=== PATIENT | male | born 1975 | race Caucasian/White ===

== ENCOUNTER → 2023-10-21 09:50 | Outpatient (REF) | payer BC, SELFPAY | LOC: RCS 09:50 | PROVIDERS: ATTENDING PHYSICIAN Internal Medicine Cardiovascular Disease | DX: R94.31 Abnormal electrocardiogram [ECG] [EKG] (principal) | CPT/HCPCS: 93306 ==

== ENCOUNTER → 2024-01-24 07:47 | Outpatient (REF) | payer BC, SELFPAY | LOC: RAD 07:47 | PROVIDERS: ATTENDING PHYSICIAN Surgery; FAMILY PHYSICIAN Family Medicine | DX: N40.1 Benign prostatic hyperplasia with lower urinary tract symptoms (principal) | CPT/HCPCS: 76770 ==

== ENCOUNTER 2024-08-04 18:04 | Inpatient (IN) | payer BC, SELFPAY ==
[2024-08-04 11:31] VITALS: BP 162/101
--- NOTE | 2024-08-04 14:17 | ED.GENMED ---
History of Present Illness
General
Chief Complaint: Abdominal Pain
Time Seen by Provider: 08/04/24 13:55
History of Present Illness
History of Present Illness:
49-year-old male presents the emergency department for evaluation of lower abdominal discomfort. Symptoms been waxing waning for the past several days but today he woke with severe symptoms making it challenging to even stand. He went to urgent
care where labs revealed mild leukocytosis as well as an elevated serum creatinine. He does report he has been taking 5 g of creatine essentially since April. Shows me outpatient lab results from April with a creatinine of 0.88. Has had
diverticulitis in the past and states the pain feels similar. No fevers or chills
Past History
Past History
ED Past Medical History: Asthma and Other (Diverticulitis)
Social History
Tobacco: Non-smoker
Alcohol: Occasional
Drug: None
Living: with family
Employment: Employed
Family History
Family History: CAD and Other
Review of Systems
Review of Systems
Allergies reviewed?: Yes
All Other Systems: ROS reviewed and negative except as documented in HPI and ROS
Phy Exam
Physical Exam
Physical Exam:
GEN: Well appearing, NAD, WDWN
HEENT: Oral mucosa moist, no scleral icterus
Cardiac: Regular rate
Lung: No respiratory distress, no tachypnea
Abdomen: Soft, suprapubic tenderness moderate
MSK: No gross deformity or injuries
Skin: Good color, no pallor or jaundice, no rashes
Neuro: AO x3, moves all extremities freely
Psych: Calm, cooperative
Course
Orders/Labs/Results
Orders:
Orders
08/04/24 14:12
CT Abd/Pel (IV only)-[facility] only Urgent
Comment:
Reason For Exam: lower abd pain
08/04/24 14:28
C-Reactive Protein Urgent
Comment: ADDON
CPK [Creatine Phosphokinase] Urgent
Complete Blood Count/No Diff Urgent
Comprehensive Metabolic Panel Urgent
08/04/24 14:29
0.9% Sodium Chloride 1000 ml [Nss] 1,000 ml IV BOLUS
08/04/24 16:44
LevoFLOXacin 750 MG/150 ML [Levaquin] 750 mg in 150 ml IV NOW
MetroNIDAZOLE 500 MG/100 ML [Flagyl 500 mg] 100 ml IV NOW
08/04/24 17:47
Admit/Transfer Patient As Directed
Co-Sign Provider:
Level of Care: Inpatient admission
Assign to:: Medical/Surgical
Physician / Group: [email or web address]
Diagnosis: Complicated acute severe sigmoid diverticulitis with audi diverticular ab
Reason for Hospitalization: Complicated acute severe sigmoid diverticulitis with audi diverticular abscess
Expected length of stay greater than two midnights?: Yes
ELOS- Estimated Length of Stay in days: 3
I certify the patient meets the requirements for IP care: Yes
08/04/24 17:51
Code Status As Directed
Resuscitation Status: Full Code
Abnormal Lab Results
08/04/24
14:28
WBC 15.3 H 10^3/uL
(4.8-10.8)
MCHC 32.9 L g/dL
(33.0-37.0)
Glucose 100 H mg/dl
(70-99)
Creatine Kinase 230 H U/L
(55-170)
C-Reactive Protein 24.50 H mg/L
(0.0-10.00)
08/04/24 14:28
08/04/24 14:28
Vital Signs
Initial and Last Documented VS:
Initial Vital Signs
Temp Pulse Resp BP Pulse Ox
98.1 F 99 20 162/101 99
08/04/24 11:31 08/04/24 11:31 08/04/24 11:31 08/04/24 11:31 08/04/24 11:31
Last Documented Vital Signs
Temp Pulse Resp BP Pulse Ox
98.1 F 88 16 142/101 98
08/04/24 18:32 08/04/24 17:10 08/04/24 17:10 08/04/24 17:10 08/04/24 17:10
MDM/Problems Addressed
MDM/Problems Addressed:
Elevated serum creatinine from urgent care likely artifactual in the setting of rapid i-STAT lab use. Creatinine in the ED is normal. CT shows severe diverticulitis with a peridiverticular abscess thus will admit for IV antibiotics
*Critical Care Note
Total Time (30-74mins, 75-104mins- exclusive of procedures): Not Applicable
ED Attending Note
-
Portions of this chart may have been created with voice recognition software.� Occasional wrong word or��sound alike� substitutions may have occurred due to the inherent limitations of voice recognition software.
Discharge Plan
Departure
Patient Disposition: Admit
Date of Disposition: 08/04/24
Time of Disposition: 16:45
Admit to: Med/Surg
Presentation/result/management discussed w/ accepting MD/DO: Hospitalist
Discharge Problem:
Diverticulitis of intestine with abscess
Interventions
Interventions:
*Risk Screen - Suicide Last Done: 08/04/24 14:22
*General Assessment Last Done: 08/04/24 11:31
*Neglect/Abuse Screening Last Done: 08/04/24 14:22
*ED- Fall Risk Assessment Last Done: 08/04/24 14:21
*ED COVID-19 Vaccine History Last Done: 08/04/24 14:21
OO-Vgdbgi-Dgfdfgkhlj Assessment Last Done: 08/04/24 14:22
[2024-08-04 14:21] VITALS: BMI 27.4
[2024-08-04] MEDS: NSS 1000 IV ×2 (14:31→20:53)
[2024-08-04 14:57] LABS: Hematocrit 43.4 % (39.0-52.0); Hemoglobin 14.3 g/dL (13.0-18.0); Mean Corp Hgb Conc. 32.9 g/dL (33.0-37.0); Mean Corpuscular Hgb 28.3 pg (27.0-31.0); Mean Corpuscular Volume 85.8 fL (80.0-94.0); Mean Platelet Volume 9.2 fL (7.4-10.4); Platelet Count 229 10^3/uL (130-400); Red Blood Cell Count 5.06 10^6/uL (4.70-6.10); White Blood Cell Count 15.3 10^3/uL (4.8-10.8)
[2024-08-04 15:10] LABS: ALT (SGPT) 48 U/L (0-50); AST (SGOT) 36 U/L (17-59); Albumin 4.5 g/dl (3.5-5.0); Alkaline Phosphatase 79 U/L (38-126); Blood Urea Nitrogen 16 mg/dl (9-20); Calcium 9.6 mg/dl (8.4-10.2); Carbon Dioxide 28 mmol/L (22-30); Chloride 99 mmol/L (98-107); Creatine Phosphokinase 230 U/L (55-170); Estimated Creatinine Clearance 108 ml/min; Glucose 100 mg/dl (70-99); Potassium 4.3 mmol/L (3.5-5.1); Sodium 136 mmol/L (135-145); Total Bilirubin 0.5 mg/dl (0.2-1.3); Total Protein 7.4 g/dl (6.3-8.2); eGFR > 60.00
[2024-08-04] MEDS: FLAGYL 500 MG 100 IV (17:01)
[2024-08-04 17:10] VITALS: BP 142/101
--- NOTE | 2024-08-04 17:41 | HPS.HSE ---
Family Physician
-
Family Physician: NOT KNOW UNKNOWN - PT DOES
Chief Complaint
-
acute lower abdominal discomfort
History of Present Illness
49M HX Diverticulitis, DMT2, HTN, HLD, HX PCN allergy seen at ER:
- pw acute lower abdominal discomfort.
- Symptoms been waxing waning for the past several days but today he woke with severe symptoms making it challenging to even stand.
- Evaluated at [facility] : labs revealed mild leukocytosis as well as an elevated serum creatinine. He has been taking 5 g of creatine essentially since April.
- HX diverticulitis in the past and states the pain feels similar.
ROS:
No fevers or chills
Medical History
Past Medical History
Past Medical History: Reports HTN, Hypercholesterolemia, NIDDM and Other (HX Diverticulitis)
Past Surgical History: Reports Other
Social History
Tobacco: Non-smoker
Alcohol: None
Family History
Family History: Not pertinent
Allergies / Home Medications
Allergies reflects when Allergies were last updated in [email or web address].
Home Medications with original date entered in [email or web address]
Allergy/Medication List:
Allergies
Allergy/AdvReac Type Severity Reaction Status Date / Time
Penicillins Allergy Unknown Unknown Verified 08/04/24 11:30
Home Medications
omeprazole 20 mg capsule,delayed release 20 mg PO DAILY 08/11/18
amlodipine 2.5 mg tablet 2.5 mg PO DAILY 08/04/24
atorvastatin 10 mg tablet 10 mg PO DAILY 08/04/24
fexofenadine 180 mg tablet 180 mg PO DAILY 08/04/24
metformin 500 mg tablet,extended release 24hr (osmotic) 1,000 mg PO BID 08/04/24
minocycline 50 mg capsule 50 mg PO DAILYPRN PRN flare up 08/04/24
therapeutic multivitamin 1 tab PO DAILY 08/04/24
vibegron 75 mg tablet (Gemtesa) 75 mg PO QPM 08/04/24
Review of Systems
-
Constitutional: Reports No Symptoms
EENT: Reports No Symptoms
Respiratory: Reports No Symptoms
Cardiac: Reports No Symptoms
Abdomen/GI: Reports See HPI and Abdominal Pain (lower abdominal discomfort )
: Reports No Symptoms
Musculoskeletal: Reports No Symptoms
Skin: Reports No Symptoms
Neurological: Reports No Symptoms
Endocrine: Reports No Symptoms
Hematologic/Lymphatic: Reports No Symptoms
Psych: Reports No Symptoms
Physical Exam
Vital Signs
Vital Signs
Temp Pulse Resp BP Pulse Ox
98.0 F 88 16 142/101 98
08/04/24 17:10 08/04/24 17:10 08/04/24 17:10 08/04/24 17:10 08/04/24 17:10
Physical Exam
General: Well Developed, Well Nourished and No Apparent Distress
HEENT: NormoCephalic, Moist mucous membranes and Atraumatic
Respiratory: Clear
Cardiac: S1/S2 and Regular Rhythm; No Murmur or Rub
GI: Soft and Tender (suprapubic tenderness )
Rectal: Deferred by Provider
Musculoskeletal: No Clubbing, No Cyanosis and No Edema
Skin: No Rash
Neuro: Nonfocal/grossly intact
Laboratory Results
-
08/04/24 14:28
08/04/24 14:28
Laboratory Results
Total Bilirubin 0.5 mg/dl (0.2-1.3) 08/04/24 14:28
AST 36 U/L (17-59) 08/04/24 14:28
ALT 48 U/L (0-50) 08/04/24 14:28
Alkaline Phosphatase 79 U/L (38-126) 08/04/24 14:28
Data Reviewed
-
CT Scan: Report Reviewed by me
Lab Data: Labs Reviewed by me
Impression/Plan
-
Laboratory Tests
08/04/24
14:28
WBC 15.3 H
Creatinine 0.9
eGFR > 60.00
Creatine Kinase [address] Abd/Pel (IV only)-DH only
- CT findings compatible with moderate to severe diverticulitis involving the sigmoid colon in the central and left pelvis.
- There is a small peridiverticular abscess between the sigmoid colon and the superior bladder wall, with slight thickening of the adjacent superior bladder wall.
- No air within the bladder at this time, with no convincing CT evidence for fistula at this time.
- There is no free intraperitoneal air.
- Hepatomegaly with diffuse fatty infiltration the liver. 1.5 cm hemangioma within the posterior and superior right lobe of the liver.
NO PRIOR hospitalist admission:
ASSESSMENT & PLAN
Complicated acute severe sigmoid diverticulitis with peridiverticular abscess but no free air
HX Diverticulitis
HX PCN allergy
- NPO and IVF
- Empiric IV Cefepime and Flagyl suggested by CRS for HX PCN allergy
- PRN narcotic algesia
- CRS consult
Borderline hypotension
HX benign HTN
- Hold amlodipine
DMT2
- Hold Metformin
- add ISS low
HLD
- hold atorvastatin
DVT Px: SQH
Full code
IP MS
[2024-08-04] MEDS: LEVAQUIN 150 IV (18:01)
[2024-08-04 19:52] VITALS: BP 135/83
[2024-08-04 20:07] VITALS: BMI 27.1
[2024-08-04 20:20] VITALS: BP 147/99
--- NOTE | 2024-08-04 20:30 | PTCARENOTE ---
Received patient from ED via stretcher. Patient ambulated from stretcher to bed independently. Oriented patient to room and placed call yang within reach.
[2024-08-04] MEDS: HEPARIN 5000 UNITS SC (20:54)
[2024-08-04] MEDS: MAXIPIME 2000 MG IV (21:01)
[2024-08-04] MEDS: STERILE WATER FOR INJECTION 10 ML IV (21:02)
[2024-08-04 23:47] VITALS: BP 140/83
[2024-08-05 00:21] LABS: Glucose - Point of Care 121 mg/dl (70-99)
[2024-08-05] MEDS: FLAGYL 500 MG 100 IV ×3 (00:34→16:49)
[2024-08-05 05:49] LABS: Glucose - Point of Care 108 mg/dl (70-99)
[2024-08-05 06:00] VITALS: BMI 26.8
[2024-08-05 06:25] LABS: Hematocrit 41.9 % (39.0-52.0); Hemoglobin 13.6 g/dL (13.0-18.0); INR 1.01; Mean Corp Hgb Conc. 32.5 g/dL (33.0-37.0); Mean Corpuscular Hgb 27.8 pg (27.0-31.0); Mean Corpuscular Volume 85.7 fL (80.0-94.0); Mean Platelet Volume 9.1 fL (7.4-10.4); PT 13.6 Sec (11.4-14.6); Platelet Count 211 10^3/uL (130-400); Red Blood Cell Count 4.89 10^6/uL (4.70-6.10); Red Cell Dist. Width 14.1 % (11.5-14.5); White Blood Cell Count 11.5 10^3/uL (4.8-10.8)
[2024-08-05] MEDS: STERILE WATER FOR INJECTION 10 ML IV ×3 (06:35→21:32)
[2024-08-05] MEDS: MAXIPIME 2000 MG IV ×3 (06:35→21:31)
[2024-08-05 06:42] LABS: Blood Urea Nitrogen 11 mg/dl (9-20); Calcium 9.2 mg/dl (8.4-10.2); Carbon Dioxide 32 mmol/L (22-30); Chloride 98 mmol/L (98-107); Estimated Creatinine Clearance 108 ml/min; Glucose 108 mg/dl (70-99); Potassium 4.2 mmol/L (3.5-5.1); Sodium 136 mmol/L (135-145); eGFR > 60.00
[2024-08-05 07:00] VITALS: BP 124/82
[2024-08-05] MEDS: NSS 1000 IV (07:57)
[2024-08-05] MEDS: HEPARIN 5000 UNITS SC ×2 (08:02→19:52)
[2024-08-05 08:20] LABS: Glycohemoglobin (HgbA1c) 6.6 % (4.0-5.6)
[2024-08-05 10:51] LABS: Urine Albumin Negative (Neg - Trace); Urine Bilirubin Negative (Negative); Urine Character Clear (Clear); Urine Color Yellow; Urine Glucose Negative (Negative); Urine Ketone Negative (Negative); Urine Leukocyte Negative (Negative); Urine Nitrite Negative (Negative); Urine Occult Blood Negative (Negative); Urine Urobilinogen Negative (Neg - 1+)
--- NOTE | 2024-08-05 12:00 | CM ---
CM following re: discharge planning.
Reviewed pt's chart,met with pt.
Pt is a 49 year old male, admitted with primary dx of Complicated acute severe sigmoid diverticulitis.
Pt reports he lives with spouse 2SH, 1 step to enter, has supportive son. pt described himself as independent in all areas [employer], drives, works.
PCP: pt stated his PCP left the practice and he is looking for a new PCP, declined to have a list of PCP offices.
Pharmacy: [facility]
D/C plan: home with no after care VN needs.
CM will follow with discharge plan updates as needed.
[2024-08-05 12:05] LABS: Glucose - Point of Care 131 mg/dl (70-99)
--- NOTE | 2024-08-05 14:44 | CON.CRS ---
Consultation
-
Date/Time Consultation Requested: 08/04/24 2017
Date/Time Consultation Performed: 08/05/24 1045
Requesting Provider: Ayala
Performing Provider: Christelle Joyner
Reason for Consultation: Complicated acute severe sigmoid diverticulitis with peridiverticular abs
Medical History
-
Chief Complaint: abdominal pain
History of Present Illness:
Mr Hameed is a 49 yo male with a history of DM, HTN, OAB, and diverticulitis about 10 years ago requiring hospitalization with last routine colonoscopy in March, who presented through the ED with LLQ abdominal pain across the suprapubic area
increasing over the past 4-5 days. He notes that initially he felt that he was constipated, but on Tuesday was able to have a BM without relief of symptoms. His pain increased causing him to present last night for evaluation. He has been passing
flatus, with last BM on Tuesday. He denies nausea, vomiting, fevers or chills. On exam, he is tender to the LLQ into the suprapubic area. He notes that his pain has improved since yesterday.
Past Medical History
Past Medical History: Diverticulitis, HTN, Hypercholesterolemia, NIDDM and Other (OAB)
Past Surgical History: None
Social History
Tobacco: Non-Smoker
Alcohol: Occasional
Family History
Family History: Reviewed & Not Pertinent
Allergies / Home Medications
Allergy/AdvReac Type Severity Reaction Status Date / Time
Penicillins Allergy Unknown as a child Verified 08/04/24 20:31
�Medication �Instructions �Recorded �Confirmed �Type
omeprazole 20 mg capsule,delayed 20 mg PO DAILY 08/11/18 08/04/24 History
release
amlodipine 2.5 mg tablet 2.5 mg PO DAILY 08/04/24 08/04/24 History
atorvastatin 10 mg tablet 10 mg PO DAILY 08/04/24 08/04/24 History
fexofenadine 180 mg tablet 180 mg PO DAILY 08/04/24 08/04/24 History
metformin 500 mg tablet,extended 1,000 mg PO BID 08/04/24 08/04/24 History
release 24hr (osmotic)
minocycline 50 mg capsule 50 mg PO DAILYPRN PRN flare up 08/04/24 08/04/24 History
therapeutic multivitamin 1 tab PO DAILY 08/04/24 08/04/24 History
vibegron 75 mg tablet (Gemtesa) 75 mg PO QPM 08/04/24 08/04/24 History
Review of Systems
-
History Source: Patient
All other systems: Negative unless noted
A 10 point review of systems was completed, and was negative except as per HPI.
Physical Exam
Vital Signs
Temp 97.7 F 08/05/24 07:00
Pulse 88 08/05/24 07:00
Resp Rate 17 08/05/24 07:00
Blood pressure 124/82 08/05/24 07:00
SaO2 93 08/05/24 07:00
08/04/24 08/05/24 08/06/24
06:59 06:59 06:59
Actual Weight 89.528 kg
Body Mass Index (BMI) 26.8
Lab Results / Allergies
08/05/24 05:32
08/05/24 05:32
WBC 11.5 10^3/uL (4.8-10.8) H 08/05/24 05:32
Hgb 13.6 g/dL (13.0-18.0) 08/05/24 05:32
Hct 41.9 % (39.0-52.0) 08/05/24 05:32
Plt Count 211 10^3/uL (130-400) 08/05/24 05:32
Allergy/AdvReac Type Severity Reaction Status Date / Time
Penicillins Allergy Unknown as a child Verified 08/04/24 20:31
Physical Exam
General: Well Developed and Well Nourished
HEENT: Moist Mucous Membranes
Respiratory: Non Labored Respirations
GI: Soft, Non Distended and Tender (LLQ into suprapubic area)
Skin: Warm and Dry
Neuro: Awake, Alert and AO x 3
Psych: Calm
Data Reviewed
-
CT Scan: Image Personally Visualized and interpreted, Report Reviewed by me, Discussed with Physician and Discussed with Patient
Labs: Labs Reviewed by me, Discussed with Physician and Discussed with Patient
Old Records: Reviewed
Assessment / Plan
-
49 yo male with a history of DM, HTN, OAB, and diverticulitis about 10 years ago requiring hospitalization with last routine colonoscopy in March, presenting with diverticulitis. CT imaging reviewed with sigmoid diverticulitis present with
adjacent thickening of the bladder wall. ?Abscess read on CT of 8mm. AFVSS. Leukocytosis present on admission and trending down. Pain thus far has improved with antibiotics and bowel rest.
No plans for emergent surgery at this time. Will follow with medical management for continued improvement
--Ok for clear liquids
--IVF as per primary team
--Continue IV ABX (cefepime/flagyl)
--Will follow labs/exams
--- NOTE | 2024-08-05 15:42 | W.PN.HOSP.TC ---
Today's Communication/Plan
-
stop IVF
cont clears
advance diet as per CRS
Assessment / Plan
Assessment / Plan
pt is a 49 year old male
Complicated acute severe sigmoid diverticulitis with possible peridiverticular abscess--apprec CRS--no surgery indicated--cont cefepime and flagyl--clears--advance diet as tolerated
Essential HTN--Hold amlodipine
DMT2--Hold Metformin-- add ISS low
HLD--hold atorvastatin
DVT proph
Code status--FULL CODE
Anticipated Discharge: 24 - 48 hours
Subjective/Interval History
-
Date of Service: August 05, 2024
pt without c/o
Objective Data
-
Labs:
Laboratory Results
08/05/24
05:32
WBC 11.5 H
Hgb 13.6
Hct 41.9
Plt Count 211
PT 13.6
INR 1.01
Sodium 136
Potassium 4.2
Chloride 98
Carbon Dioxide 32 H
BUN 11
Creatinine 0.9
Glucose 108 H
Calcium 9.2
Vital Signs:
max temp for 24 hours
08/04/24
20:20
Temp 98.3 F
Vital Signs
Temp Pulse Resp BP Pulse Ox
97.7 F 88 17 124/82 93
08/05/24 07:00 08/05/24 07:00 08/05/24 07:00 08/05/24 07:00 08/05/24 07:00
I&O
08/04/24 08/05/24 08/06/24
06:59 06:59 06:59
Intake Total 240 / 240
Balance 240 / 240
Review of Systems
-
All other systems: Reviewed and negative
Physical Exam
-
General: Well Developed, Well Nourished and No Apparent Distress
HEENT: Normocephalic and Atraumatic
Respiratory: Clear to Auscultation; Negative Wheezes or Rhonchi
Cardiac: Regular Rhythm and S1/S2; Negative Murmur
GI: Soft, Nontender, Nondistended and Normal Bowel Sounds
Musculoskeletal: No Clubbing, No Cyanosis and No Edema
Neuro: Awake
Psych: Calm
[2024-08-05 15:55] VITALS: BP 164/94
[2024-08-05 17:15] LABS: Glucose - Point of Care 112 mg/dl (70-99)
[2024-08-05 21:34] LABS: Glucose - Point of Care 110 mg/dl (70-99)
[2024-08-05 23:38] VITALS: BP 121/80
[2024-08-06] MEDS: FLAGYL 500 MG 100 IV ×2 (00:09→09:16)
[2024-08-06] MEDS: MAXIPIME 2000 MG IV ×2 (05:26→14:02)
[2024-08-06] MEDS: STERILE WATER FOR INJECTION 10 ML IV ×2 (05:26→14:02)
[2024-08-06 06:00] VITALS: BMI 26.8
[2024-08-06 07:25] VITALS: BP 139/89
[2024-08-06 07:28] LABS: Glucose - Point of Care 109 mg/dl (70-99)
[2024-08-06] MEDS: HEPARIN 5000 UNITS SC (09:16)
[2024-08-06 09:22] LABS: Hemoglobin 14.4 g/dL (13.0-18.0); Mean Corpuscular Hgb 27.9 pg (27.0-31.0); Mean Platelet Volume 9.1 fL (7.4-10.4); Platelet Count 242 10^3/uL (130-400); Red Blood Cell Count 5.17 10^6/uL (4.70-6.10); White Blood Cell Count 9.6 10^3/uL (4.8-10.8)
--- NOTE | 2024-08-06 09:48 | W.PN.CRS1 ---
Today's Communication / Plan
-
start regular diet
okay for d/c from our perspective if tolerating a diet
Assessment/Plan
-
49 yo male with a history of DM, HTN, OAB, and diverticulitis about 10 years ago requiring hospitalization with last routine colonoscopy in March, presenting with diverticulitis. CT imaging reviewed with sigmoid diverticulitis present with
adjacent thickening of the bladder wall. ?Abscess read on CT of 8mm. AFVSS. Leukocytosis present on admission and trending down. Pain thus far has improved with antibiotics and bowel rest.
Vitals normal
--Advance diet to regular
--IVF as per primary team
--Continue IV ABX (cefepime/flagyl) - finish course of oral antibiotics as an outpatient
--Will follow labs/exams
--If tolerating a diet, okay from our perspective for discharge. Finish outpatient course of antibiotics. Follow up with Dr. Joyner in 2-4 weeks.
Subjective Data
Subjective Data
Date of Service: August 06, 2024
Patient states his pain is 'not too bad'. He has some gas pains. He has flatus but no bowel movements. He denies nausea or vomiting.
Objective Data
-
Vital Signs
Temp Pulse Resp BP Pulse Ox
97.4 F 96 18 139/89 97
08/06/24 07:25 08/06/24 07:25 08/06/24 07:25 08/06/24 07:25 08/06/24 07:25
Intake & Output
08/05/24 08/06/24 08/07/24
06:59 06:59 06:59
Intake Total 240 / 240 3130 / 3130
Balance 240 / 240 3130 / 3130
Intake:
Oral fluids 240 / 240 2130 / 2130
IV fluids (Total) 200 / 200
IV piggybacks 800 / 800
Other:
Number of approximated MODERATE 2 2
amounts of urine
Lab Results
08/06/24 08:15
Physical Exam
-
General: No Acute Distress and AOx3
Abdomen: Soft, Non Distended and Tender (LLQ mild)
Skin: Warm and Dry
[2024-08-06 10:11] LABS: Blood Urea Nitrogen 12 mg/dl (9-20); Calcium 9.5 mg/dl (8.4-10.2); Carbon Dioxide 26 mmol/L (22-30); Chloride 100 mmol/L (98-107); Estimated Creatinine Clearance 121 ml/min; Glucose 109 mg/dl (70-99); Magnesium 2.6 mg/dl (1.6-2.3); Potassium 4.4 mmol/L (3.5-5.1); Sodium 136 mmol/L (135-145); eGFR > 60.00
--- NOTE | 2024-08-06 10:40 | W.PN.HOSP.TC ---
Addendum entered and electronically signed by Zarbina Waller MD 08/09/24 10:24:
Contained peridiverticular abscess not in peritoneum
- abx plan as below
Original Note:
Today's Communication/Plan
-
see plan
Assessment / Plan
Assessment / Plan
pt is a 49 year old male
CT A/P
IMPRESSION: CT findings compatible with moderate to severe diverticulitis involving the sigmoid colon in the central and left pelvis.
There is a small peridiverticular abscess between the sigmoid colon and the superior bladder wall, with slight thickening of the adjacent superior bladder wall. No air within the bladder at this time, with no convincing CT evidence for fistula at
this time.
There is no free intraperitoneal air.
Hepatomegaly with diffuse fatty infiltration the liver. 1.5 cm hemangioma within the posterior and superior right lobe of the liver.
Complicated acute severe sigmoid diverticulitis with possible peridiverticular abscess-
-Cefepime/Flagyl - will transition to Cipro/Flagyl on DC
-hx penicillin allergy
-appreciate CRS
-diet advanced, possible DC later today if tolerates
Essential HTN--Hold amlodipine
DMT2--Hold Metformin-- add ISS low
HLD--hold atorvastatin
DVT proph
Code status--FULL CODE
Anticipated Discharge: Within 24 hours
Subjective/Interval History
-
Date of Service: August 06, 2024
feeling well
going to order solid food for lunch
feels mildly bloated, passing gas
Objective Data
-
Labs:
Laboratory Results
08/06/24
08:15
WBC 9.6
Hgb 14.4
Hct 45.0
Plt Count 242
Sodium 136
Potassium 4.4
Chloride 100
Carbon Dioxide 26
BUN 12
Creatinine 0.8
Glucose 109 H
Calcium 9.5
Vital Signs:
Vital Signs
Temp Pulse Resp BP Pulse Ox
97.4 F 96 18 139/89 97
08/06/24 07:25 08/06/24 07:25 08/06/24 07:25 08/06/24 07:25 08/06/24 07:25
I&O
08/05/24 08/06/24 08/07/24
06:59 06:59 06:59
Intake Total 240 / 240 3130 / 3130
Balance 240 / 240 3130 / 3130
Review of Systems
-
History Source: Patient
All other systems: Reviewed and negative
Physical Exam
-
General: Well Developed, Well Nourished and No Apparent Distress
HEENT: Normocephalic and Atraumatic
Respiratory: Clear to Auscultation; Negative Wheezes or Rhonchi
Cardiac: Regular Rhythm and S1/S2; Negative Murmur
GI: Soft, Nontender, Nondistended and Normal Bowel Sounds
Musculoskeletal: No Clubbing, No Cyanosis and No Edema
Neuro: Awake
Psych: Calm
Data Reviewed
-
Diagnostic Radiology: Report Reviewed by me
Labs: Labs Reviewed by me
[2024-08-06 11:49] LABS: Glucose - Point of Care 151 mg/dl (70-99)
--- NOTE | 2024-08-06 14:07 | W.DS.TRANS ---
DC Summary - Adult Specialist
-
Discharge Instructions:
Discharge Diagnosis/Procedures acute diverticulitis
Diet Low Residue
Additional Diets Low Residue diet x 2-3 more days
Activity As tolerated
Driving Restrictions As prior to admission
Bathing Restrictions None
Instructions: Low-fiber diet
Stand-Alone Forms:
Changes to Home Medications: Yes
Discharge Medications:
DC Medications w/original date entered in [facility]
omeprazole 20 mg capsule,delayed release 20 mg PO DAILY 08/11/18
amlodipine 2.5 mg tablet 2.5 mg PO DAILY 08/04/24
atorvastatin 10 mg tablet 10 mg PO DAILY 08/04/24
fexofenadine 180 mg tablet 180 mg PO DAILY 08/04/24
metformin 500 mg tablet,extended release 24hr (osmotic) 1,000 mg PO BID 08/04/24
minocycline 50 mg capsule 50 mg PO DAILYPRN PRN flare up 08/04/24
therapeutic multivitamin 1 tab PO DAILY 08/04/24
vibegron 75 mg tablet (Gemtesa) 75 mg PO QPM 08/04/24
ciprofloxacin HCl 500 mg tablet 500 mg PO BID #22 tabs 08/06/24
metronidazole 500 mg tablet 500 mg PO Q8H 11 days #33 tabs 08/06/24
Home Medication Changes
Addition of Ciprofloxacin and Flagyl
Pending Results: No
--- NOTE | 2024-08-06 14:13 | W.DCSUMMARY ---
Discharge Summary
Discharge Data
Date of Admission: 08/04/24
Date of Discharge: 08/06/24
-
Pending Results: No
Hospital Course
Discharging Physician : Dr. Zabrina Waller
Disposition : Home
Primary care physician : Unknown - patient told to make an appointment this week
Principal Discharge diagnosis : Acute Complicated Diverticulitis
Hospital Course :
Mr. Enrique Hameed is a 49 yo man with hx essential HTN, DM, HLD presents to the ER with lower abdominal pain. Triage vitals significant for hypertension. Labs with WBC 15.3. CT with moderate to severe diverticulitis; small peridiverticular
abscess.
He was admitted to medicine with CRS consulting. He was given IV Cefepime/Flagyl. Symptoms improved over the next 48 hours, no indication for surgical intervention. He is tolerating a regular diet prior to discharge. He is discharged on
Ciprofloxacin/Flagyl to complete a 14 day course and will follow up with CRS as outpatient.
Time spent on discharge 31 minutes.
Important imaging findings :
Abdomen/Pelvis CT
IMPRESSION: CT findings compatible with moderate to severe diverticulitis involving the sigmoid colon in the central and left pelvis.
There is a small peridiverticular abscess between the sigmoid colon and the superior bladder wall, with slight thickening of the adjacent superior bladder wall. No air within the bladder at this time, with no convincing CT evidence for fistula at
this time.
There is no free intraperitoneal air.
Hepatomegaly with diffuse fatty infiltration the liver. 1.5 cm hemangioma within the posterior and superior right lobe of the liver.
Procedure findings :
Discharge Plan
-
Patient Disposition: Home (Routine Discharge)
Discharge Diagnosis/Procedures: acute diverticulitis
Diet: Low Residue
Additional Diets: Low Residue diet x 2-3 more days
Activity: As tolerated
Driving Restrictions: As prior to admission
Bathing Restrictions: None
Instructions: Low-fiber diet
Referrals:
Enrique Joyner MD [Active] - in two to four weeks
UNKNOWN - PT DOES,NOT KNOW [Family Provider] - in less than 1 week
Additional Discharge Medication Instructions: Continue antibiotic course x 11 more days to complete 14 days of therapy
Prescriptions:
New
ciprofloxacin HCl 500 mg tablet
500 mg PO BID Qty: 22 0RF
metronidazole 500 mg tablet
500 mg PO Q8H 11 Days Qty: 33 0RF
Continued
omeprazole 20 MG capsule,delayed release(DR/EC)
20 mg PO DAILY
atorvastatin 10 mg Tablet
10 mg PO DAILY
therapeutic multivitamin Tablet
1 tab PO DAILY
amlodipine 2.5 mg Tablet
2.5 mg PO DAILY
fexofenadine 180 mg Tablet
180 mg PO DAILY
minocycline 50 mg Capsule
50 mg PO DAILYPRN PRN (Reason: flare up)
metformin 500 mg Tablet Extended Release 24hr
1,000 mg PO BID
Gemtesa 75 mg Tablet
75 mg PO QPM
Discharge Orders:
Discharge Patient (As Directed); Ordered 08/06/24
Ordered By: Zabrina Waller
Discharge Date and Time
Print Language: GREEK
[2024-08-06 14:15] VITALS: BP 134/84
--- NOTE | 2024-08-06 14:31 | CM ---
Patient stable for d/c today.
No CM needs identified at this time
Plan: Home; no needs
--- NOTE | 2024-08-07 14:35 | PN.CDI ---
CDI
- -
CDI:
Physician Documentation Request
Admit Date: 08/04/24 18:04
Dear Doctor Sridhar,
Please review the following and provide your response in the progress notes.
Clinical Indicators:
- 08/06 DC Summary 'CT with moderate to severe diverticulitis; small peridiverticular abscess'
- 08/04 CT abd/pel 'small peridiverticular abscess which extends to the superior wall of the urinary bladder'
- 'There is no evidence of free intraperitoneal air'
- Discharged on Cipro and Flagyl
Please clarify the diagnosis with the above findings
Peritoneal abscess
Contained peridiverticular abscess not in peritoneum
Other (please specify)
Use of terms such as suspected, likely, concern for, or probable (associated with a specific diagnosis that is being evaluated, monitored, or treated as if it exists) are acceptable and can be coded in the inpatient setting, when documented at the
time of discharge.
Thank you,
Stacy Cano RN
CDI Specialist
Please use your independent medical judgment in providing your response.
== END 2024-08-06 14:36 | disposition home or self-care (01) | DRG 392 ==
LOC: 4 EAST ACU 18:04
PROVIDERS: Internal Medicine; Physician Assistant; Registered Nurse; ADMITTING PHYSICIAN Internal Medicine; ATTENDING PHYSICIAN Student in an Organized Health Care Education/Training Program; CONSULT PHYSICIAN Surgery; EMERGENCY PHYSICIAN Emergency Medicine
DX: K57.20 Diverticulitis of large intestine with perforation and abscess without bleeding (principal); I10 Essential (primary) hypertension; E78.00 Pure hypercholesterolemia, unspecified; E11.9 Type 2 diabetes mellitus without complications; D18.03 Hemangioma of intra-abdominal structures; J45.909 Unspecified asthma, uncomplicated; N32.81 Overactive bladder; Z88.0 Allergy status to penicillin; Z79.899 Other long term (current) drug therapy; Z79.84 Long term (current) use of oral hypoglycemic drugs
CPT/HCPCS: 74177; 80048; 80053; 81003; 82550; 82962; 83036; 83735; 85027; 85610; 86140; 96361; 96365; 96367; 99284; Q9967